=== PATIENT | male | born 1950 | race Caucasian/White ===

== ENCOUNTER → 2017-08-16 | Outpatient (CLI) | payer MEDICARE, OTHER ==
[~2017-08-16] MED LIST: ASP81TEC PO; CLOP75TA PO; CRESTOR40 MG PO; GARL400T13 PO; GLUC1CAP37 PO; IRBE300T9 PO; LOSA100T7 PO; METO200T2 PO; MILK1CAP2 PO; MULT-608 PO; NF-METANX PO; OMEG-82 PO; OMEG1CAP51 PO; SAWP1CAP PO; [UNRECOGNIZED DRUG - OTHER] PO
== END ==
LOC: CARD 09:26
PROVIDERS: ATTEND Physician Assistant
DX: I25.10 Atherosclerotic heart disease of native coronary artery without angina pectoris (principal); I65.29 Occlusion and stenosis of unspecified carotid artery; I10 Essential (primary) hypertension; E78.2 Mixed hyperlipidemia
CPT/HCPCS: 93306

== ENCOUNTER → 2017-09-09 | Outpatient (CLI) | payer MEDICARE, OTHER ==
[~2017-09-09] MED LIST changes: +CATHETER FLUSH 10 ML SYR IV PRN
[2017-09-09 09:24] VITALS: BP 162/102
--- NOTE | 2017-09-10 07:58 | STRESS TEST ---
DATE OF SERVICE: 09/09/2017 EXERCISE MYOVIEW STRESS TEST REPORT REFERRING PHYSICIAN: Zoltan Hernandez MD Baseline heart rate is 79, baseline blood pressure 168/102. Baseline EKG is sinus rhythm with no ischemic changes. In summary, the patient was injected with 10.94 mCi of technetium-99 Myoview and the resting images were obtained. Then, the patient started exercising with a baseline heart rate, blood pressure and EKG as mentioned above. He was able to exercise for a total of 9 minutes on standard Hiram protocol, achieving maximum heart rate of 140, which is 90% of maximum expected heart rate. With peak exercise level, EKG was showing no significant ischemic changes. Blood pressure was 203/103. During recovery, heart rate and blood pressure returned to baseline. EKG returned to baseline. The resting and stress images were reviewed and compared in the short axis, horizontal long axis and vertical long axis views. Review of the images showed fixed defect at the true apex and anteroapical segment and anterior septum with subtle cecil-infarct ischemia. SSS is 17, SDS 1, TID value 1.13. On the gated images, the left ventricle is normal in size with hypokinesia at the anterior wall akinesia of the apex. Calculated ejection fraction of 37%. CONCLUSION: 1. Excellent exercise tolerance a total of 9 minutes on standard Hiram protocol, total of 10.5 METS achieving 90% of maximum expected heart rate. 2. Baseline hypertension with severe hypertensive response to exercise returned to baseline during recovery. 3. No EKG changes suggestive of ischemia during test. 4. Total infarction of the apex, anteroapical and anterior septum with small area of periinfarct ischemia. 5. Prominent left ventricle with akinesia of the apex and hypokinesia of the anterior wall and anterior septum. Calculated ejection fraction of 37%. Job ID: [id number] DocumentID: [id number] Dictated Date: 09/10/2017 07:20:12 Mining Consultant Date: 09/10/2017 07:58:15 Dictated By: CARMEN BLOCK MD
== END ==
LOC: CARD 07:45
PROVIDERS: ATTEND Physician Assistant
DX: I25.10 Atherosclerotic heart disease of native coronary artery without angina pectoris (principal); I10 Essential (primary) hypertension; E78.2 Mixed hyperlipidemia
CPT/HCPCS: 78452; 93017

== ENCOUNTER → 2018-11-20 | Outpatient (CLI) | payer MEDICARE, OTHER ==
[~2018-11-20] MED LIST changes: -CATHETER FLUSH 10 ML SYR IV PRN
== END ==
LOC: CARD 08:05
PROVIDERS: ATTEND Internal Medicine Cardiovascular Disease
DX: I25.10 Atherosclerotic heart disease of native coronary artery without angina pectoris (principal); I65.29 Occlusion and stenosis of unspecified carotid artery; I11.0 Hypertensive heart disease with heart failure; I50.1 Left ventricular failure, unspecified; E78.2 Mixed hyperlipidemia; I34.0 Nonrheumatic mitral (valve) insufficiency
CPT/HCPCS: 93306

== ENCOUNTER 2019-04-23 13:20 | Outpatient (CLI) | payer MEDICARE, OTHER ==
[~2019-04-23] VITALS: Ht 172 cm; Wt 81.8 kg
[2019-04-23] MEDS ORDERED: MILK175C5 PO (13:31)
[2019-04-23] MEDS ORDERED: LOSA100T57 PO (13:31)
[2019-04-23] MEDS ORDERED: OMEG-77 PO (13:31)
[2019-04-23] MEDS ORDERED: GARL400T14 PO (13:31)
[2019-04-23] MEDS ORDERED: GLUC1CAP37 PO (13:31)
[2019-04-23] MEDS ORDERED: METO200T48 PO (13:31)
[2019-04-23] MEDS ORDERED: ROSU40TA23 PO (13:31)
[2019-04-23] MEDS ORDERED: SAW450CA7 PO (13:31)
[2019-04-23] MEDS ORDERED: MULT1CAP27 PO (13:31)
[2019-04-23] MEDS ORDERED: LEVO1CAP11 PO (13:31)
[2019-04-23] MEDS ORDERED: ASPI-999 PO (13:31)
== END 2019-04-23 13:33 | disposition home or self-care (01) ==
LOC: PREOP 13:20
PROVIDERS: ATTEND Internal Medicine
DX: Z01.818 Encounter for other preprocedural examination (principal)

== ENCOUNTER 2019-04-24 08:29 | Day surgery (SDC) | payer MEDICARE, OTHER ==
--- NOTE | 2019-04-20 13:15 | HISTORY AND PHYSICAL ---
DATE OF SERVICE: 04/24/2019 COLONOSCOPY HISTORY AND PHYSICAL HISTORY OF PRESENT ILLNESS: The patient is a 69-year-old white male seen in the office on 04/16/2019, here for followup of coronary artery disease, hypogonadism and hypertension. He has a family history for colon cancer, and this case being in his grandmother diagnosed in her late 80s, succumbing to disease at the age of 90. He has had past colonic adenomas removed and had been over 6 years since his last colonoscopy. He reports that he has been feeling well. He has had no chest discomfort. Denies dyspnea on exertion and walks every day. He has rare episodes of loose stool without bright red blood per rectum or melena. Weight has been stable and appetite has been normal. He voiced no complaints today. PHYSICAL EXAMINATION: GENERAL: Revealed a well-appearing white male in no acute distress. Weight stable 177.8 pounds. VITAL SIGNS: Blood pressure 136/80. HEENT: Unremarkable. TMs normal. Ear canals normal. No cerumen noted. NECK: Revealed no JVD, adenopathy or bruits. CHEST: Clear to auscultation. CARDIOVASCULAR: Revealed a regular rate and rhythm without murmur, S3 or S4. ABDOMEN: Soft, supple without mass, organomegaly or tenderness. Bowel sounds positive. No bruits noted. EXTREMITIES: Reveal no cyanosis, clubbing or edema. LABORATORY DATA: Blood tests were reviewed with the patient. Chemistry panel normal. Lipid panel ideal. His testosterone level on replacement therapy in the form of generic solution that he is using two pumps of daily was high at 1600. He states he did not use the medication before coming in that morning. His PSA remains low at 0.53. ASSESSMENT AND PLAN: 1. Coronary artery disease, clinically stable. 2. Hyperlipidemia, under good control. LDL 79, HDL 76 with a triglyceride level of 120. Continue current statin therapy. 3. Hypogonadism over replacement. He was told to cut down to 1 pump daily. When he returns, we will be obtaining another trough testosterone level. 4. The patient was set up for screening colonoscopy on 04/24/2019. Prep instructions with Suprep kit were given. Job ID: [id number] DocumentID: [id number] Dictated Date: 04/16/2019 09:58:08 Finance Effectiveness Manager Date: 04/16/2019 11:46:09 Dictated By: CHINMAY BOATENG MD
[2019-04-24] VITALS (13 sets, daily range): BP systolic 142–171; BP diastolic 82–97
[~2019-04-24] VITALS: Ht 165.1 cm; Wt 81.8 kg
[~2019-04-24 08:29] MED LIST changes: +ASPI-999 PO; +GARL400T14 PO; +LEVO1CAP11 PO; +LOSA100T57 PO; +METO200T48 PO; +MILK175C5 PO; +MULT1CAP27 PO; +OMEG-77 PO; +ROSU40TA23 PO; +SAW450CA7 PO
--- NOTE | 2019-04-24 08:36 | Pre-Op Note & Conscious Sedat ---
Pre-Operative Progress Note H&P Reviewed The H&P was reviewed, patient examined and no changes noted. Date H&P Reviewed: Apr 24, 2019 Time H&P Reviewed: 08:35 Conscious Sedation Pre-Proced ASA Score 2 For ASA 3 and 4: Consider anesthesia and medical clearance. Also, for patients with a history of failed moderate sedation consider anesthesia. Airway Lungs Heart ASA score ASA 1: a normal healthy patient ASA 2: a patient with a mild systemic disease (mid diabetes, controlled hypertension, obesity ASA 3: a patient with a severe systemic disease that limits activity (angina, COPD, prior Myocardial infarction) ASA 4: a patient with an incapacitating disease that is a constant threat to life (CHF, renal failure) ASA 5: a moribund patient not expected to survive 24 hrs. (ruptured aneurysm) ASA 6: a declared brain- patient whose organs are being harvested. For emergent operations, add the letter E after the classification Mallampati Classification Grade 2 Sedation Plan Analgesia, Amnesia, Plan communicated to team members, Discussed options with patient/fam, Discussed risks with patient/fam The patient is an appropriate candidate to undergo the planned procedure, sedation, and anesthesia. The patient immediately re-assessed prior to indication. CHINMAY BOATENG MD Apr 24, 2019 08:36 POS
[2019-04-24] MEDS ORDERED: D5 LR IV SOLUTION 1,000 ML IV STA (08:46)
[2019-04-24] MEDS ORDERED: D5 LR IV SOLUTION 1,000 ML IV ONE (08:54)
[2019-04-24] MEDS ORDERED: MIDAZOLAM 5 MG/5 ML (VERSED) VIAL IV PRN (09:00)
[2019-04-24] MEDS ORDERED: LIDOCAINE JELLY 2% 6 ML SYRINGE MM PRN (09:00)
[2019-04-24] MEDS ORDERED: fentaNYL INJECTION 100 MCG/2 ML AMP IVP ONE (09:00)
[2019-04-24] MEDS ORDERED: MIDAZOLAM 2 MG/2 ML (VERSED) VIAL ONE ×2 (09:27)
[2019-04-24] MEDS ORDERED: LIDOCAINE JELLY 2% 6 ML SYRINGE ONE (09:27)
[2019-04-24] MEDS ORDERED: fentaNYL INJECTION 100 MCG/2 ML AMP ONE (09:27)
--- NOTE | 2019-04-24 18:19 | OPERATIVE REPORT ---
DATE OF SERVICE: COLONOSCOPY SUMMARY I am his primary care physician. INDICATION FOR THE PROCEDURE: Screening colonoscopy. DESCRIPTION OF PROCEDURE: The patient was placed in left lateral decubitus position. Prior to undergoing colonoscopy, digital rectal evaluation was performed. Anal sphincter tone was normal and the perianal reflexes intact. Prostate was unremarkable on digital inspection with no evidence for significant BPH. No abnormalities, no digital inspection of the anal canal or distal rectal vault. The colonoscope was then inserted into the rectum and under direct visualization advanced to cecum. The cecum was identified by the identification of the ileocecal valve and cecal strap. Photographic documentation was obtained. A careful inspection was made as the colonoscope was withdrawn. The patient tolerated the procedure well. FINDINGS: No evidence for internal or external hemorrhoids and the rectum was unremarkable. Beginning in the mid sigmoid colon and most prominent in the sigmoid colon, but scattered throughout the entire colon were small to medium size diverticulum without evidence for diverticulitis. Present in the mid sigmoid colon was slightly inflamed appearing polyp not adjacent to the diverticulum measuring 3 x 4 mm in size. It was photographed and biopsied and ablated with no subsequent blood loss. A diminutive 1 mm polyp was noted in the proximal transverse colon. It was removed in its entirety via biopsy without cauterization. No other evidence for neoplasia was identified. ASSESSMENT: Moderate diverticular disease while most prominent in the mid and proximal sigmoid colon was scattered throughout the entire colon without evidence for diverticulitis. Two diminutive polyps were removed, one from the mid sigmoid colon, one from the proximal transverse colon. We will await histopathology report before advocating future surveillance colonoscopy interval. Job ID: [id number] DocumentID: [id number] Dictated Date: 04/24/2019 10:36:08 Electronics Teacher Date: 04/24/2019 18:18:51 Dictated By: CHINMAY BOATENG MD
== END 2019-04-24 10:25 | disposition home or self-care (01) ==
LOC: ENDO 08:29
PROVIDERS: ATTEND Internal Medicine
DX: Z12.11 Encounter for screening for malignant neoplasm of colon (principal); D12.3 Benign neoplasm of transverse colon; D12.5 Benign neoplasm of sigmoid colon; K57.30 Diverticulosis of large intestine without perforation or abscess without bleeding
CPT/HCPCS: 88305

== ENCOUNTER → 2020-07-21 | Outpatient (CLI) | payer MEDICARE, OTHER | LOC: CARD 09:00 | PROVIDERS: ATTEND Physician Assistant | DX: I25.10 Atherosclerotic heart disease of native coronary artery without angina pectoris (principal) | CPT/HCPCS: 93306 ==

== ENCOUNTER → 2020-08-01 | Outpatient (CLI) | payer MEDICARE, OTHER ==
[~2020-08-01] MED LIST changes: +CATHETER FLUSH 10 ML SYR IV PRN
[2020-08-01 09:09] VITALS: BP 160/79
--- NOTE | 2020-08-03 11:30 | Cardiology Stress Test Report ---
Stress Test Report Date of Procedure/Referring: Date of Procedure: Aug 01, 2020 Stefanie Mckinney Admitting Physician Zoltan Hernandez MD Indications: Coronary artery disease Baseline Heart Rate: 74 Baseline Blood Pressure: Blood Pressure Systolic: 160 Blood Pressure Diastolic: 79 Vital Signs Date Time Temp Pulse Resp B/P (MAP) Pulse Ox O2 Delivery O2 Flow Rate FiO2 08/01/20 09:09 82 18 160/79 (106) 99 Room Air Baseline Vital Signs Vital Signs Date Time Temp Pulse Resp B/P (MAP) Pulse Ox O2 Delivery O2 Flow Rate FiO2 08/01/20 09:09 82 18 160/79 (106) 99 Room Air Baseline EKG: Baseline EKG: sinus rhythm, nonspecific T wave abnormality Summary: After explaining the procedure and details to the patient, he signed the consent and was brought to the stress nuclear laboratory. Patient exercised on standard Hiram protocol, EKG, heart rate and blood pressure were monitored continuously, resting and stress doses of radio tracer were injected, imaging was acquired and reviewed in the short axis, horizontal long axis and vertical long axis views Patient was able to exercise for a total of 8:30 minutes on Hiram protocol, METs 10.3 Maximum heart rate 137 Maximum blood pressure 223/71 Stress EKG, Minimal nondiagnostic changes Recovery EKG, Return to baseline TID: 1 SSS: 16 SDS: 14 EF: 49 Conclusion: 1. Good exercise tolerance for a total of 8 minutes 31 seconds on standard Hiram protocol total of 10.3 METs achieving 90 percent of maximum expected heart rate 2. Baseline minimal nondiagnostic EKG changes persisted during exercise. No acute ischemic changes on EKG 3. Fixed defect involving the mid to apical anterior wall and true apex with no significant reversibility, did not change compared to previous studies 4. Normal left ventricular size with hypokinesia at the anteroapical segment and true apex with EF 49 percent CARMEN BLOCK MD Aug 03, 2020 11:30
== END ==
LOC: CARD 07:45
PROVIDERS: ATTEND Physician Assistant
DX: I25.10 Atherosclerotic heart disease of native coronary artery without angina pectoris (principal)
CPT/HCPCS: 78452; 93017; A9502